=== PATIENT | male | born 1965 | race Caucasian/White ===

== ENCOUNTER 2017-12-31 09:15 | Emergency (ER) | payer SELFPAY ==
[~2017-12-31] VITALS: Ht 172.7 cm; Wt 67.6 kg
[2017-12-31] MEDS ORDERED: LIDOCAINE 2% 20 ML (XYLOCAINE) VIAL INJ STA (09:37)
[2017-12-31] MEDS ORDERED: fentaNYL INJECTION 100 MCG/2 ML AMP IVP STA (09:37)
[2017-12-31] MEDS ORDERED: ONDANSETRON 4 MG/2 ML (SDV) Z0FRAN IVP ONE (09:45)
--- NOTE | 2017-12-31 09:59 | ED Upper Extremity ---
General Chief Complaint: Upper Extremity Stated Complaint: LEFT HAND LAC Nursing Triage Note: PATIENT HERE WITH INJURY TO 3RD AND 4TH FINGER AFTER ACCIDENT INVOLVING A DRY CLEANER HAND. Nursing Sepsis Screen: No Definite Risk Source: patient Exam Limitations: no limitations History of Present Illness Date Seen by Provider: December 31, 2017 Time Seen by Provider: 09:15 Initial Comments Here with report of injury to the third and fourth finger of the left hand that is due to fingers getting cut by a lawnmower blade. Apparently he was trying to adjust the deck on his lawn more reached down when his fingers, and the blade. Reports that it cut off his fingers. There is typically amputation of the left fourth finger and laceration to the pad of the third finger. Complains of severe pain. Does have a shirt wrapped around his hand and tight off at the wrist. Bleeding is controlled currently. Reports tetanus up-to- date. Does complain of nausea and vomiting associated with this. Onset: just prior to arrival (approximately 30 minutes ago) Severity: moderate, severe Pain/Injury Location: left 3rd finger, left 4th finger, left 5th finger Method of Injury: direct blow, incised Modifying Factors: Improves With Immobilization; Worse With Movement Allergies and Home Medications Allergies Coded Allergies: codeine (Verified Allergy, Unknown, 12/31/17) Patient Home Medication List Home Medication List Reviewed: Yes Constitutional: see HPI; No chills, No fever Respiratory: no symptoms reported; No cough, No short of breath Cardiovascular: no symptoms reported; No chest pain, No edema Gastrointestinal: No abdominal pain; nausea, vomiting Musculoskeletal: see HPI, joint pain, joint swelling, muscle pain Skin: see HPI; No change in color; lesions Psychiatric/Neurological: Denies Headache, Denies Weakness Past Jjaovwj-Xfhlpe-Zadvdq Hx Past Med/Social Hx: Reviewed Nursing Past Med/Soc Hx Patient Social History Alcohol Use: Denies Use Recreational Drug Use: No Smoking Status: Current Everyday Smoker Type Used: Cigarettes 2nd Hand Smoke Exposure: Yes Recent Foreign Travel: No Contact w/Someone Who Travel: No Recent Infectious Disease Expo: No Recent Hopitalizations: No Seasonal Allergies Seasonal Allergies: No Past Medical History Surgeries: Yes (KIDNEY STONES, HERNIA, NERVE ABLATION) Appendectomy Respiratory: No Cardiac: No Neurological: No Genitourinary: No Gastrointestinal: Yes Liver Disease/Jaundice, Hepatitis Musculoskeletal: Yes Arthritis Endocrine: No HEENT: No Cancer: No Psychosocial: Yes Depression Blood Disorders: No Family Medical History Reviewed Nursing Family Hx No Pertinent Family Hx Physical Exam Vital Signs Vital Signs - First Documented 12/31/17 09:15 Temp 97.9 Pulse 54 Resp 18 Pulse Ox 98 Capillary Refill : Less Than 3 Seconds General Appearance: WD/WN, no apparent distress Respiratory: lungs clear, normal breath sounds Gastrointestinal: non tender, soft Back: normal inspection, no CVA tenderness, no vertebral tenderness Hand: Left, abrasions, ecchymosis, laceration (Left third finger with laceration and flap to the pad surface from just distal to the DIP joint to near the tip. Pad is completely avulsed. Left fourth finger distal tip at the proximal nailbed completely amputated. Small laceration or abrasion to the pad side lateral aspect of the fifth finger.), nail injury, soft tissue tenderness Neurologic/Psychiatric: alert, normal mood/affect, oriented x 3 Skin: normal color, warm/dry Procedures/Interventions Wound Location: Upper Extremities Other Wound Location Left third and fourth finger third finger flap avulsion complete to the pad. Fourth finger distal tip amputation at the level of the proximal nailbed Wound Length (cm): 4 Wound's Depth, Shape: into muscle, irregular, flap Wound Explored: contaminated Irrigated w/ Saline (ccs): 500 Betadine Prep?: Yes Anesthesia: 1% Lidocaine Volume Anesthetic (ccs): 10 Wound Debrided: moderate Suture: Ethlion Suture Size: 4-0 Number of Sutures: 7 Layer Closure?: 1 Number Deep Layer Sutures: 0 Sterile Dressing Applied?: Yes Progress Copious wound cleaning, scrubbing and irrigation to both wounds. Third finger pad to simple interrupted sutures placed to maintain wound edges. Fourth finger had significant wound debridement with bone removal required of distal phalanx to adequately cover bone and with remaining skin flap and tissue. Wound was approximated closer but not complete with sutures. Both wounds covered with antibiotic ointment, nonstick dressing and tube gauze. Tolerated procedure well with no complications. Progress/Results/Core Measures Results/Orders My Orders Orders - JULIO FRAUSTO MD Saline Lock/Iv-Start (12/31/17 09:37) Fentanyl Injection (Sublimaze Injection (12/31/17 09:37) Ondansetron Injection (Zofran Injectio (12/31/17 09:45) Lidocaine 2% Injection 20 Ml (Xylocaine (12/31/17 09:37) Hand, Left, 3 Views (12/31/17 09:37) Cephalexin Capsule (Keflex Capsule) (12/31/17 12:03) Hydrocodone/Apap 7.5/325 Tab (Lortab 7. (12/31/17 12:03) Medications Given in ED Current Medications Medications Dose Ordered Sig/Berna Route Start Time Stop Time Status Last Admin Dose Admin Ondansetron HCl 4 mg ONCE ONCE IVP 12/31/17 09:45 12/31/17 09:46 DC 12/31/17 09:20 4 MG Vital Signs/I&O 12/31/17 09:15 Temp 97.9 Pulse 54 Resp 18 B/P (MAP) Pulse Ox 98 Progress Progress Note : Progress Note Seen and evaluated.d cleaning of the hand and digital block of the third and fourth finger. Tetanus is up-to-date. IV established and fentanyl 75 g IV and Zofran 4 mg IV given. X-ray of the left hand ordered. Wound and hand cleaning after digital block complete and was done by nursing. 1220: Complicated wound debridement and closure done by me. I did have to reapply digital block prior to removing bone end. Patient tolerated procedure well with no complications. Keflex 500 mg by mouth given. Hydrocodone 7.5 mg by mouth given. We will continue Keflex and hydrocodone as outpatient. I did discuss the case with Dr. Doran who will see the patient in office on . Patient to call office for appointment time. Discharge home with return precautions. Patient verbalize understanding instructions and agreement with plan. Diagnostic Imaging Diagonstic Imaging: Xray Plain Films/CT/US/NM/MRI: head Comments VIA [facility]. [place], [place] NAME: LEONARD VALENCIA [facility] REC#: [id number] PT STATUS: REG ER : 1965 PHYSICIAN: JULIO FRAUSTO MD ADMIT DATE: 12/31/17/ER Draft Date of Exam:12/31/17 HAND, LEFT, 3 VIEWS INDICATION: Traumatic injury with a lawnmower. COMPARISON: None. FINDINGS: Three radiographic views of the left hand were obtained. There has been partial interval amputation of the distal fourth digit involving the distal margins of the distal phalanx and overlying soft tissues. There is also soft tissue defect of the distal margins of the third digit. Underlying osseous structures of the third digit however appear to be intact. No other acute fracture or dislocation of the left hand is identified. No unexpected radiopaque foreign bodies are seen. IMPRESSION: 1. Partial amputation of the distal fourth digit as described above. 2. Soft tissue defect of the third digit, but no appreciable underlying osseous involvement. Dictated on workstation # [id number] Dict: 12/31/17 1008 Trans: 12/31/17 1013 [facility] [id number] Interpreted by: DAVID SLAUGHTER MD Electronically signed by: Departure Impression Primary Impression: Fingertip amputation Qualified Codes: S68.129A - Partial traumatic metacarpophalangeal amputation of unspecified finger, initial encounter Additional Impression: Laceration of finger of left hand Qualified Codes: S61.323A - Laceration with foreign body of left middle finger with damage to nail, initial encounter Disposition: 01 HOME, SELF-CARE Condition: Improved Departure-Patient Inst. Decision time for Depature: 12:28 Referrals: AUSTIN DORAN,LOCAL PHYSICIAN (PCP) Primary Care Physician Patient Instructions: Amputation of the Finger or Fingertip (DC), Laceration Repair With Stitches (DC) Add. Discharge Instructions: All discharge instructions reviewed with patient and/or family. Voiced understanding. Take medications as directed. Follow-up with Dr. Doran on . Call his office today for appointment time. Return for worse pain, fever, vomiting, weakness, breathing problems or other concerns as needed. You may take ibuprofen 800 mg every 8 hours as needed for pain as well as the prescribed pain medicine. Do not take Tylenol/acetaminophen while taking the prescribed pain medicine as they both have Tylenol in them. Scripts Hydrocodone Bit/Acetaminophen (Hydrocodone/Acetaminophen 5/325mg Tablet) 1 Tab Tab 1-2 EACH PO Q6H PRN for PAIN-MODERATE, #24 TAB 0 Refills Prov: JULIO FRAUSTO MD 12/31/17 Cephalexin (Cephalexin) 500 Mg Tablet 500 MG PO QID, #20 TAB 0 Refills Prov: JULIO FRAUSTO MD 12/31/17 Copy Copies To 1: DELMAN,JULIO CABRERA MD December 31, 2017 09:59
--- NOTE | 2017-12-31 10:14 | Diagnostic Imaging Report ---
INDICATION: Traumatic injury with a lawnmower. COMPARISON: None. FINDINGS: Three radiographic views of the left hand were obtained. There has been partial interval amputation of the distal fourth digit involving the distal margins of the distal phalanx and overlying soft tissues. There is also soft tissue defect of the distal margins of the third digit. Underlying osseous structures of the third digit however appear to be intact. No other acute fracture or dislocation of the left hand is identified. No unexpected radiopaque foreign bodies are seen. IMPRESSION: 1. Partial amputation of the distal fourth digit as described above. 2. Soft tissue defect of the third digit, but no appreciable underlying osseous involvement. Dictated by: Dictated on workstation # [id number]
[2017-12-31] MEDS ORDERED: CEPHALEXIN 250 MG (KEFLEX) CAP PO STA (12:03)
[2017-12-31] MEDS ORDERED: HYDROcodone/APAP 7.5 MG/325 MG (LORTAB, LORCET PLUS) TABLET PO STA (12:03)
[2017-12-31] MEDS ORDERED: ACHD5005 PO (12:32)
[2017-12-31] MEDS ORDERED: CEPH500T PO (12:32)
[2017-12-31 12:35] VITALS: BP 144/73
== END 2017-12-31 12:41 | disposition home or self-care (01) ==
LOC: ER 09:18
DX: S68.622A Partial traumatic transphalangeal amputation of right middle finger, initial encounter (principal); S61.323A Laceration with foreign body of left middle finger with damage to nail, initial encounter; F32.9 Major depressive disorder, single episode, unspecified; F17.210 Nicotine dependence, cigarettes, uncomplicated; Z90.49 Acquired absence of other specified parts of digestive tract; Z87.442 Personal history of urinary calculi; Z87.19 Personal history of other diseases of the digestive system; W29.8XXA Contact with other powered hand tools and household machinery, initial encounter
CPT/HCPCS: 73130; 96374; 96375

== ENCOUNTER 2018-12-14 07:58 | Emergency (ER) | payer MEDICAID, OTHER ==
[~2018-12-14] VITALS: Ht 172.7 cm; Wt 63.5 kg
[~2018-12-14 07:58] MED LIST: ACHD5005 PO; CEPH500T PO
--- NOTE | 2018-12-14 07:58 | NUR ---
SOON PT ARRIVED HE STATES HE NEEDS TO GO TO THE BATHROOM ET HAS BEEN HAVING DIARRHEA.
--- NOTE | 2018-12-14 08:00 | NUR ---
TO ROOM LYING ON SIDE SLEPPING.
[2018-12-14] MEDS ORDERED: NS IV 1000 ML 1,000 ML IV ONE (08:02)
[2018-12-14] MEDS ORDERED: FAMOTIDINE 20MG/2ML IV (PEPCID) IVP ONE (08:15)
[2018-12-14] MEDS ORDERED: fentaNYL INJECTION 100 MCG/2 ML AMP IVP ONE ×2 (08:15→10:00)
[2018-12-14] MEDS ORDERED: ONDANSETRON 4 MG/2 ML (SDV) Z0FRAN IVP ONE ×2 (08:15→12:00)
[2018-12-14 08:28] LABS: BASOPHILS % (AUTO) 0 % (0-10); EOSINOPHILS % (AUTO) 0 % (0-10); HEMATOCRIT 44 % (40-54); HEMOGLOBIN 15.3 G/DL (13.3-17.7); LYMPHOCYTES # (AUTO) 1.4 X 10^3 (1.0-4.0); LYMPHOCYTES % (AUTO) 12 % (12-44); MEAN CORPUSCULAR HEMOGLOBIN 30 PG (25-34); MEAN CORPUSCULAR HGB CONC 35 G/DL (32-36); MEAN CORPUSCULAR VOLUME 87 FL (80-99); MONOCYTES # (AUTO) 0.6 X 10^3 (0.0-1.0); MONOCYTES % (AUTO) 6 % (0-12); NEUTROPHILS # (AUTO) 9.2 X 10^3 (1.8-7.8); NEUTROPHILS % (AUTO) 82 % (42-75); PLATELET COUNT 323 10^3/uL (130-400); WHITE BLOOD COUNT 11.2 10^3/uL (4.3-11.0)
[2018-12-14] MEDS ORDERED: DULO60CA58 PO (08:34)
[2018-12-14] MEDS ORDERED: OXYC10TA7 (08:34)
[2018-12-14] MEDS ORDERED: PREG300C PO ×2 (08:34→11:54)
[2018-12-14 08:37] LABS: INR 0.9 (0.8-1.4); PROTHROMBIN TIME PATIENT 12.7 SEC (12.2-14.7)
[2018-12-14 08:44] LABS: ALANINE AMINOTRANSFERASE 23 U/L (0-55); ALBUMIN 4.9 GM/DL (3.2-4.5); ALKALINE PHOSPHATASE 132 U/L (40-136); BILIRUBIN,TOTAL 0.7 MG/DL (0.1-1.0); BUN/CREATININE RATIO 17; CALCIUM 10.4 MG/DL (8.5-10.1); CARBON DIOXIDE 21 MMOL/L (21-32); CHLORIDE 105 MMOL/L (98-107); CREATININE SERUM 1.05 MG/DL (0.60-1.30); GFR ESTIMATED > 60; GLUCOSE 148 MG/DL (70-105); LIPASE 75 U/L (8-78); MAGNESIUM 2.2 MG/DL (1.8-2.4); POTASSIUM 3.7 MMOL/L (3.6-5.0); SODIUM 141 MMOL/L (135-145); TOTAL PROTEIN 7.9 GM/DL (6.4-8.2)
--- NOTE | 2018-12-14 08:44 | Diagnostic Imaging Report ---
INDICATION: Chest pain. No prior examinations are available for comparison. FINDINGS: The heart size, mediastinal configuration, and pulmonary vascularity are within normal limits. There is no pleural effusion, pneumothorax, or pneumonia. The osseous structures are unremarkable. IMPRESSION: No acute cardiopulmonary abnormality. Dictated by: Dictated on workstation # [id number]
--- NOTE | 2018-12-14 08:58 | NUR ---
IN ROOM AT THIS TIME.
--- NOTE | 2018-12-14 09:00 | NUR ---
URNIAL GIVEN TO PT.
[2018-12-14] MEDS ORDERED: IOHEXOL 350 MG/ML 100 ML (OMNIPAQUE 350) VIAL IV ONE (09:30)
[2018-12-14] MEDS ORDERED: HOLD METFORMIN - RECEIVED CONTRAST 20 ML VIAL IV SCH (09:30)
--- NOTE | 2018-12-14 09:32 | ED General ---
General Chief Complaint: Abdominal/GI Problems Stated Complaint: CHEST PAIN Source of Information: Patient Exam Limitations: No Limitations History of Present Illness Date Seen by Provider: Dec 14, 2018 Time Seen by Provider: 07:59 Initial Comments This 53-year-old man presents to the emergency room via [facility] with complaints of chest pain initially. However, upon arrival it is clear that he is actually suffering from epigastric and left upper quadrant pain nausea, vomiting, and diarrhea. He reports vomiting for the past couple of days and diarrhea started this morning. The extreme pain started this morning as well. He is noted to have excessive belching. EMS reports vital signs are stable and unremarkable. Patient states pain is worse with movement and better with rest or warm baths. EKG per EMS was unremarkable. Aspirin was administered. Patient has history of hepatitis which was treated and he reports care. Patient denies any drug or alcohol use. Allergies and Home Medications Allergies Coded Allergies: codeine (Verified Allergy, Unknown, 12/31/17) Home Medications Cephalexin 500 Mg Tablet, 500 MG PO QID Prescribed by: JULIO FRAUSTO on 12/31/17 1232 Duloxetine HCl 60 Mg Capsule.dr, 60 MG PO BID, (Reported) Hydrocodone Bit/Acetaminophen 1 Tab Tab, 1-2 EACH PO Q6H PRN for PAIN-MODERATE Prescribed by: JULIO FRAUSTO on 12/31/17 1232 Hyoscyamine Sulfate 0.125 Mg Tab.subl, 0.25 MG SL Q4H PRN for CRAMPS Prescribed by: LAMONT ALVARADO on 12/14/18 1154 Ondansetron 4 Mg Tab.rapdis, 4 MG PO Q4H PRN for NAUSEA/VOMITING-1ST LINE Prescribed by: LAMONT ALVARADO on 12/14/18 1154 Pregabalin 300 Mg Capsule, 300 MG PO BID, (Reported) Pregabalin 300 Mg Capsule, 300 MG PO BID Prescribed by: LAMONT ALVARADO on 12/14/18 1154 Promethazine HCl 25 Mg Tablet, 25 MG PO Q6H PRN for NAUSEA/VOMITING-2ND LINE Prescribed by: LAMONT ALVARADO on 12/14/18 1154 Patient Home Medication List Home Medication List Reviewed: Yes Review of Systems Review of Systems Constitutional: no symptoms reported EENTM: no symptoms reported Respiratory: no symptoms reported Cardiovascular: see HPI Gastrointestinal: see HPI Genitourinary: no symptoms reported Musculoskeletal: no symptoms reported Skin: no symptoms reported Psychiatric/Neurological: No Symptoms Reported Hematologic/Lymphatic: No Symptoms Reported Immunological/Allergic: no symptoms reported Past Ndlsxui-Lmbjaa-Vofbmt Hx Past Med/Social Hx: Reviewed and Corrections made Patient Social History Type Used: Cigarettes 2nd Hand Smoke Exposure: Yes Recent Foreign Travel: No Contact w/Someone Who Travel: No Recent Hopitalizations: No Seasonal Allergies Seasonal Allergies: No Past Medical History Surgeries: Yes (KIDNEY STONES, HERNIA, NERVE ABLATION) Abdominal, Appendectomy, Renal Respiratory: No Cardiac: No Neurological: No Genitourinary: No Gastrointestinal: Yes Liver Disease/Jaundice, Hepatitis (patient states treated and cured) Musculoskeletal: Yes Arthritis Endocrine: No HEENT: No Cancer: No Psychosocial: Yes Depression Integumentary: No Blood Disorders: No Family Medical History No Pertinent Family Hx Physical Exam Vital Signs Vital Signs - First Documented 12/14/18 07:58 Temp 97.3 Pulse 64 Resp 22 B/P (MAP) 130/90 (103) Pulse Ox 100 O2 Delivery Room Air Capillary Refill : Height, Weight, BMI Height: 5'8.00" Weight: 149lbs. 0oz. [id number]; BMI Method:Stated General Appearance: WD/WN, Moderate Distress HEENT: PERRL/EOMI, Normal ENT Inspection Neck: Normal Inspection Respiratory: Lungs Clear, Normal Breath Sounds, No Accessory Muscle Use, No Respiratory Distress Cardiovascular: Regular Rate, Rhythm, No Edema, No Murmur Gastrointestinal: Normal Bowel Sounds, Soft, Tenderness (Central and epigastric ) Extremity: Normal Inspection, No Pedal Edema Neurologic/Psychiatric: Alert, Oriented x3, No Motor/Sensory Deficits, Normal Mood/Affect, director of operations II-XII Norm as Tested Skin: Normal Color, Diaphoresis Procedures/Interventions Suture Size: 4-0 Progress/Results/Core Measures Suspected Sepsis SIRS Temperature: Pulse: Respiratory Rate: Laboratory Tests 12/14/18 08:10: White Blood Count 11.2H Blood Pressure / Mean: Laboratory Tests 12/14/18 08:10: Creatinine 1.05, INR Comment 0.9, Platelet Count 323, Total Bilirubin 0.7 Results/Orders Lab Results Laboratory Tests Test 12/14/18 08:10 12/14/18 09:38 Range/Units White Blood Count 11.2 H 4.3-11.0 10^3/uL Red Blood Count 5.06 4.35-5.85 10^6/uL Hemoglobin 15.3 13.3-17.7 G/DL Hematocrit 44 40-54 % Mean Corpuscular Volume 87 80-99 FL Mean Corpuscular Hemoglobin 30 25-34 PG Mean Corpuscular Hemoglobin Concent 35 32-36 G/DL Red Cell Distribution Width 13.0 10.0-14.5 % Platelet Count 323 130-400 10^3/uL Mean Platelet Volume 9.0 7.4-10.4 FL Neutrophils (%) (Auto) 82 H 42-75 % Lymphocytes (%) (Auto) 12 12-44 % Monocytes (%) (Auto) 6 0-12 % Eosinophils (%) (Auto) 0 0-10 % Basophils (%) (Auto) 0 0-10 % Neutrophils # (Auto) 9.2 H 1.8-7.8 X 10^3 Lymphocytes # (Auto) 1.4 1.0-4.0 X 10^3 Monocytes # (Auto) 0.6 0.0-1.0 X 10^3 Eosinophils # (Auto) 0.0 0.0-0.3 10^3/uL Basophils # (Auto) 0.0 0.0-0.1 10^3/uL Prothrombin Time 12.7 12.2-14.7 SEC INR Comment 0.9 0.8-1.4 Activated Partial Thromboplast Time 27 24-35 SEC Sodium Level 141 135-145 MMOL/L Potassium Level 3.7 3.6-5.0 MMOL/L Chloride Level 105 98-107 MMOL/L Carbon Dioxide Level 21 21-32 MMOL/L Anion Gap 15 H 5-14 MMOL/L Blood Urea Nitrogen 18 7-18 MG/DL Creatinine 1.05 0.60-1.30 MG/DL Estimat Glomerular Filtration Rate > 60 BUN/Creatinine Ratio 17 Glucose Level 148 H 70-105 MG/DL Calcium Level 10.4 H 8.5-10.1 MG/DL Corrected Calcium 8.5-10.1 MG/DL Magnesium Level 2.2 1.8-2.4 MG/DL Total Bilirubin 0.7 0.1-1.0 MG/DL Aspartate Amino Transf (AST/SGOT) 23 5-34 U/L Alanine Aminotransferase (ALT/SGPT) 23 0-55 U/L Alkaline Phosphatase 132 40-136 U/L Myoglobin 67.0 10.0-92.0 NG/ML Troponin I < 0.028 <0.028 NG/ML Total Protein 7.9 6.4-8.2 GM/DL Albumin 4.9 H 3.2-4.5 GM/DL Lipase 75 8-78 U/L Serum Alcohol < 10 <10 MG/DL Urine Color YELLOW Urine Clarity CLEAR Urine pH 8 5-9 Urine Specific [place] 1.015 L 1.016-1.022 Urine Protein 2+ H NEGATIVE Urine Glucose (UA) NEGATIVE NEGATIVE Urine Ketones 4+ H NEGATIVE Urine Nitrite NEGATIVE NEGATIVE Urine Bilirubin NEGATIVE NEGATIVE Urine Urobilinogen 1 NORMAL MG/DL Urine Leukocyte Esterase 1+ H NEGATIVE Urine RBC (Auto) NEGATIVE NEGATIVE Urine RBC NONE /HPF Urine WBC RARE /HPF Urine Crystals NONE /LPF Urine Bacteria TRACE /HPF Urine Casts NONE /LPF Urine Mucus NEGATIVE /LPF Urine Culture Indicated NO Urine Opiates Screen NEGATIVE NEGATIVE Urine Oxycodone Screen POSITIVE H NEGATIVE Urine Methadone Screen NEGATIVE NEGATIVE Urine Propoxyphene Screen NEGATIVE NEGATIVE Urine Barbiturates Screen NEGATIVE NEGATIVE Ur Tricyclic Antidepressants Screen NEGATIVE NEGATIVE Urine Phencyclidine Screen NEGATIVE NEGATIVE Urine Amphetamines Screen NEGATIVE NEGATIVE Urine Methamphetamines Screen NEGATIVE NEGATIVE Urine Benzodiazepines Screen NEGATIVE NEGATIVE Urine Cocaine Screen NEGATIVE NEGATIVE Urine Cannabinoids Screen POSITIVE H NEGATIVE My Orders Orders - LAMONT LOMAX MD Cbc With Automated Diff (12/14/18 08:02) Magnesium (12/14/18 08:02) Chest 1 View, Ap/Pa Only (12/14/18 08:02) Ekg Tracing (12/14/18 08:02) Cardiac Profile 1 (12/14/18 08:02) Comprehensive Metabolic Panel (12/14/18 08:02) Myoglobin Serum (12/14/18 08:02) Protime With Inr (12/14/18 08:02) Partial Thromboplastin Time (12/14/18 08:02) O2 (12/14/18 08:02) Monitor-Rhythm Ecg Trace Only (12/14/18 08:02) Ed Iv/Invasive Line Start (12/14/18 08:02) Lipase (12/14/18 08:02) Ondansetron Injection (Zofran Injectio (12/14/18 08:15) Ns Iv 1000 Ml (Sodium Chloride 0.9%) (12/14/18 08:02) Famotidine Injection (Pepcid Injection) (12/14/18 08:15) Fentanyl Injection (Sublimaze Injection (12/14/18 08:15) Alcohol (12/14/18 08:17) Drug Screen Stat (Urine) (12/14/18 08:17) Ua Culture If Indicated (12/14/18 08:17) Ct Abdomen/Pelvis W (12/14/18 08:55) Iohexol Injection (Omnipaque 350 Mg/Ml 1 (12/14/18 09:30) Received Contrast (Hold Metformin- Contr (12/14/18 09:30) Promethazine Injection (Phenergan Injec (12/14/18 09:45) Fentanyl Injection (Sublimaze Injection (12/14/18 10:00) Lactated Ringers (Lr 1000 Ml Iv Solution (12/14/18 10:25) Ketorolac Injection (Toradol Injection) (12/14/18 10:30) Hyoscyamine Sl Tablet (Levsin Sl Tablet) (12/14/18 10:45) Pregabalin Capsule (Lyrica Capsule) (12/14/18 10:45) Ondansetron Injection (Zofran Injectio (12/14/18 12:00) Morphine Injection (Morphine Injection (12/14/18 11:48) Lorazepam Injection (Ativan Injection) (12/14/18 12:15) Medications Given in ED Current Medications Medications Dose Ordered Sig/Berna Route Start Time Stop Time Status Last Admin Dose Admin Famotidine 20 mg ONCE ONCE IVP 12/14/18 08:15 12/14/18 08:16 DC 12/14/18 08:22 20 MG Fentanyl Citrate 50 mcg ONCE ONCE IVP 12/14/18 08:15 12/14/18 08:16 DC 12/14/18 08:23 50 MCG Fentanyl Citrate 50 mcg ONCE ONCE IVP 12/14/18 10:00 12/14/18 10:01 DC 12/14/18 09:57 50 MCG Hyoscyamine Sulfate 0.25 mg ONCE ONCE SL 12/14/18 10:45 12/14/18 10:46 DC 12/14/18 10:43 0.25 MG Iohexol 100 ml ONCE ONCE IV 12/14/18 09:30 12/14/18 09:31 DC 12/14/18 09:34 100 ML Ketorolac Tromethamine 15 mg ONCE ONCE IVP 12/14/18 10:30 12/14/18 10:31 DC 12/14/18 10:34 15 MG Lactated Ringer's 1,000 ml @ 0 mls/hr Q0M ONCE IV 12/14/18 10:25 12/14/18 10:26 DC 12/14/18 10:40 1,000 MLS/HR Lorazepam 1 mg ONCE ONCE IVP 12/14/18 12:15 12/14/18 12:16 DC 12/14/18 12:16 1 MG Ondansetron HCl 4 mg ONCE ONCE IVP 12/14/18 12:00 12/14/18 12:01 DC 12/14/18 12:03 4 MG Ondansetron HCl 8 mg ONCE ONCE IVP 12/14/18 08:15 12/14/18 08:16 DC 12/14/18 08:22 8 MG Pregabalin 200 mg ONCE ONCE PO 12/14/18 10:45 12/14/18 10:46 DC 12/14/18 11:05 200 MG Promethazine HCl 25 mg ONCE ONCE IVP 12/14/18 09:45 12/14/18 09:46 DC 12/14/18 09:38 25 MG Sodium Chloride 1,000 ml @ 0 mls/hr Q0M ONCE IV 12/14/18 08:02 12/14/18 08:04 DC 12/14/18 08:22 1,000 MLS/HR Vital Signs/I&O 12/14/18 12/14/18 07:58 12:46 Temp 97.3 Pulse 64 104 Resp 22 16 B/P (MAP) 130/90 (103) 117/84 (95) Pulse Ox 100 97 O2 Delivery Room Air Room Air Capillary Refill : Progress Note : Progress Note Patient was initially treated with IV fluids, Zofran, Pepcid, and fentanyl. Because of the extent of his pain, CT was felt necessary. CT revealed no acute abnormalities to explain his pain. After further discussion, it was revealed that patient ran out of his Lyrica about 6 days ago. He has been suffering from GI symptoms for about 4 days. I suspect that he is suffering from Lyrica withdrawal. Lyrica 200 mg was given orally. Patient did begin to feel better. Further treatment throughout his ER stay was provided with morphine and Toradol. He was also given Phenergan for refractory nausea. Finally, he received a dose of Ativan which calmed his symptoms significantly. He was able to ambulate from the ER in much improved condition. He was given a short-term prescription for Lyrica that he could fill while waiting to get his prescription filled in [place], [place] at the [facility]. Diagnostic Imaging Diagonstic Imaging: Xray Plain Films/CT/US/NM/MRI: chest Comments Chest x-ray viewed by me and report reviewed. See report below: NAME: LEONARD [facility] REC#: [id number] PT STATUS: REG ER : 1965 PHYSICIAN: LAMONT LOMAX MD ADMIT DATE: 12/14/18/ER Signed Date of Exam: 12/14/18 CHEST 1 VIEW, AP/PA ONLY INDICATION: Chest pain. No prior examinations are available for comparison. FINDINGS: The heart size, mediastinal configuration, and pulmonary vascularity are within normal limits. There is no pleural effusion, pneumothorax, or pneumonia. The osseous structures are unremarkable. IMPRESSION: No acute cardiopulmonary abnormality. Dictated by: Dictated on workstation # [id number] Dict: 12/14/1842 Trans: 12/14/1854 Interpreted by: VERO QUIROZ MD Electronically signed by: VERO QUIROZ MD 12/14/1854 Diagonstic Imaging: CT Plain Films/CT/US/NM/MRI: abdomen, pelvis Comments CT abdomen and pelvis viewed by me and report reviewed. See report below: NAME: LEONARD [facility] REC#: [id number] PT STATUS: REG ER : 1965 PHYSICIAN: LAMONT LOMAX MD ADMIT DATE: 12/14/18/ER Signed Date of Exam: 12/14/18 CHEST 1 VIEW, AP/PA ONLY INDICATION: Chest pain. No prior examinations are available for comparison. FINDINGS: The heart size, mediastinal configuration, and pulmonary vascularity are within normal limits. There is no pleural effusion, pneumothorax, or pneumonia. The osseous structures are unremarkable. IMPRESSION: No acute cardiopulmonary abnormality. Dictated by: Dictated on workstation # [id number] Dict: 12/14/1842 Trans: 12/14/18853 Interpreted by: VERO QUIROZ MD Electronically signed by: VERO QUIROZ MD 12/14/18853 Departure Impression Primary Impression: Nausea vomiting and diarrhea Additional Impressions: Left upper quadrant pain Medication withdrawal Qualified Codes: F19.939 - Other psychoactive substance use, unspecified with withdrawal, unspecified Disposition: 01 HOME, SELF-CARE Condition: Improved Departure-Patient Inst. Decision time for Depature: 11:50 Referrals: NO,LOCAL PHYSICIAN (PCP/Family) Primary Care Physician Patient Instructions: Acute Abdomen (Belly Pain), Adult (DC) Add. Discharge Instructions: Drink plenty of clear liquids. Gradually advance your diet with small quantities of bland food as tolerated. For primary nausea control use Zofran (ondansetron) as alternative the tongue every 4 hours as needed. For backup nausea control, use the Phenergan ( promethazine) as prescribed. Resume your usual Lyrica dosing this evening. Continue your usual pain management regimen. You may use Levsin (hyoscyamine) as prescribed for bowel cramping and diarrhea. Continue to use your usual antacid medication or use Pepcid (famotidine) 20 mg twice daily purchased [id number]. Return to care if you have worsening symptoms despite these treatments. All discharge instructions reviewed with patient and/or family. Voiced understanding. Scripts Hyoscyamine Sulfate (Levsin-Sl) 0.125 Mg Tab.subl 0.25 MG SL Q4H PRN for CRAMPS, #10 TAB Prov: LAMONT LOMAX MD 12/14/18 Promethazine HCl (Promethazine Tablet) 25 Mg Tablet 25 MG PO Q6H PRN for NAUSEA/VOMITING-2ND LINE, #10 TAB Prov: LAMONT LOMAX MD 12/14/18 Ondansetron (Ondansetron Odt) 4 Mg Tab.rapdis 4 MG PO Q4H PRN for NAUSEA/VOMITING-1ST LINE, #10 TAB Prov: LAMONT LOMAX MD 12/14/18 Pregabalin (Lyrica) 300 Mg Capsule 300 MG PO BID, #10 CAP Prov: LAMONT LOMAX MD 12/14/18 LAMONT LOMAX MD Dec 14, 2018 09:32
--- NOTE | 2018-12-14 09:35 | NUR ---
BACK FROM CT. PT BERT SOUZA. NOTIFIED.
[2018-12-14] MEDS ORDERED: PROMETHAZINE INJ 25 MG/ML (PHENERGAN) AMP IVP ONE (09:45)
[2018-12-14 09:56] LABS: BILIRUBIN,URINE NEGATIVE (NEGATIVE); CLARITY,URINE CLEAR; COLOR,URINE YELLOW; GLUCOSE, URINE (UA) NEGATIVE (NEGATIVE); KETONES,URINE 4+ (NEGATIVE); LEUKOCYTE ESTERASE ,URINE 1+ (NEGATIVE); NITRITE,URINE NEGATIVE (NEGATIVE); PH,URINE 8 (5-9); PROTEIN,URINE 2+ (NEGATIVE); UROBILINOGEN,URINE 1 MG/DL (NORMAL)
[2018-12-14 10:15] LABS: BACTERIA,URINE TRACE /HPF; WBC,URINE RARE /HPF
--- NOTE | 2018-12-14 10:15 | Diagnostic Imaging Report ---
PROCEDURE: CT abdomen and pelvis with contrast. TECHNIQUE: Multiple contiguous axial images were obtained through the abdomen and pelvis after administration of intravenous contrast. Auto Exposure Controls were utilized during the CT exam to meet ALARA standards for radiation dose reduction. INDICATION: Chest pain, uncontrollable belching with shortness of breath. Prior appendectomy and left inguinal hernia repair. EXAMINATION: CT abdomen and pelvis with contrast 12/14/2018 COMPARISONS: None FINDINGS: The osseous structures demonstrate degenerative findings with no acute abnormality. Visualized lung bases unremarkable. Within the abdomen and the pelvis, there is fatty infiltration throughout the liver. Focal low density area to the right of the falciform ligament is noted, likely focal fatty change. The gallbladder is unremarkable. The spleen and adrenal glands normal. Pancreas is normal as well. Kidneys unremarkable other than the likely nonobstructive stone in the left kidney. Tiny hypodensities in the kidneys too small for characterization. There is diffuse atherosclerotic disease along the aorta and its branches. There is no ascites or free air. Wall thickening in the urinary bladder wall is noted likely due to cystitis versus underdistention; correlate with symptoms and urinalysis as clinically indicated. Appendix is surgically absent per history. No inflammatory change seen about the bowel loops. Minimal diverticular disease is noted without evidence for diverticulitis. IMPRESSION: 1. Incidental findings as discussed above with no acute process appreciated. Dictated by: Dictated on workstation # [id number]
[2018-12-14 10:22] LABS: AMPHETAMINE SCREEN, URINE NEGATIVE (NEGATIVE); BARBITURATE SCREEN URINE NEGATIVE (NEGATIVE); BENZODIAZEPINES SCREEN URINE NEGATIVE (NEGATIVE); CANNABINOID SCREEN, URINE POSITIVE (NEGATIVE); COCAINE SCREEN URINE NEGATIVE (NEGATIVE); METHADONE STAT NEGATIVE (NEGATIVE); METHAMPHETAMINE SCREEN URINE S NEGATIVE (NEGATIVE); OPIATE SCREEN URINE NEGATIVE (NEGATIVE); OXYCODONE STAT POSITIVE (NEGATIVE); PROPOXYPHENE STAT NEGATIVE (NEGATIVE); TRICYCLIC ANTIDEPRESSANTS SCRE NEGATIVE (NEGATIVE)
[2018-12-14] MEDS ORDERED: LACTATED RINGERS 1,000 ML IV ONE (10:25)
[2018-12-14] MEDS ORDERED: KETOROLAC 30 MG/ML VIAL IVP ONE (10:30)
--- NOTE | 2018-12-14 10:30 | NUR ---
INTO TALK TO PT AT THIS TIME.
[2018-12-14] MEDS ORDERED: PREGABALIN 100 MG (LYRICA) CAPSULE PO ONE (10:45)
[2018-12-14] MEDS ORDERED: HYOSCYAMINE 0.125 MG (LEVSIN) TAB SL ONE (10:45)
--- NOTE | 2018-12-14 10:56 | NUR ---
PHARMACY CONTACTED FOR AZUCENA.
--- NOTE | 2018-12-14 11:46 | NUR ---
IN TALKING TO PT AT THIS TIME. PT STATES HE IS FEELING BETTER.
[2018-12-14] MEDS ORDERED: morphine INJ 10 MG/ML 1ML (SYR OR VIAL) IVP STA (11:48)
[2018-12-14] MEDS ORDERED: HYOS0.1283 SL (11:54)
[2018-12-14] MEDS ORDERED: ONDA4TAB11 PO (11:54)
[2018-12-14] MEDS ORDERED: PROM25TA14 PO (11:54)
--- NOTE | 2018-12-14 12:08 | NUR ---
STARTED DRY HEAVING AFTER MORPHINE GIVEN. DR WANTING HIM TO WAIT ANOTHER 15 MINS TO SEE IF IT PASSES.
[2018-12-14] MEDS ORDERED: LORazepam INJ 2 MG/ML (ATIVAN) VIAL IVP ONE (12:15)
[2018-12-14 12:46] VITALS: BP 117/84
== END 2018-12-14 12:46 | disposition home or self-care (01) ==
LOC: EDUNIT# 07:58 → ER 07:59
DX: R11.2 Nausea with vomiting, unspecified (principal); R19.7 Diarrhea, unspecified; R10.12 Left upper quadrant pain; F19.939 Other psychoactive substance use, unspecified with withdrawal, unspecified; F32.9 Major depressive disorder, single episode, unspecified; Z88.5 Allergy status to narcotic agent; Z87.19 Personal history of other diseases of the digestive system; Z77.22 Contact with and (suspected) exposure to environmental tobacco smoke (acute) (chronic); Z90.49 Acquired absence of other specified parts of digestive tract; Z87.442 Personal history of urinary calculi
CPT/HCPCS: 36415; 71045; 74177; 80053; 80306; 80320; 81000; 83690; 83735; 83874; 84484; 85025; 85610; 85730; 93005; 93041